=== PATIENT | male | born 1960 | race Caucasian/White ===

== ENCOUNTER 2017-03-12 13:51 | Observation (INO) ==
[2017-03-12] MEDS ORDERED: Lidocaine -MPF 2% 5 ML VIAL INFILT ONE (14:06)
[2017-03-12] MEDS ORDERED: Clindamycin 900 MG/50 ML 900 MG/50 ML IV.SOLN IVPB ONE (14:19)
--- NOTE | 2017-03-12 14:25 | Emergency Department Note ---
Disposition Clinical Impression: Cellulitis of left leg Disposition: Admitted As Inpatient Condition: Good Referrals: NO,PCP [Primary Care Provider] - Forms: ED Satisfaction Letter Time of Disposition: 15:02 Skin/Abscess/FB HPI Chief complaint: ED Skin/Abscess/Foreign Body Stated complaint: possible abscess to left lower leg Source: patient Limitations: no limitations HPI Narrative: Patient presents to emergency department for evaluation of ongoing erythema of the left lateral lower leg. Patient was seen in this facility on March 04, I was treating provider. Patient was placed on Bactrim and Keflex secondary to left lower extremity cellulitis. He states that some of the erythema of the foot has resolved, though he has developed a fluctuant area in the left lower lateral leg. He states it has been draining purulent material. He states he has been taking his antibiotics as prescribed. He denies worsening pain. He denies fever chills. Home Medications Medication Instructions Recorded Confirmed Loratadine [Allergy Relief] 10 mg PO DAILY 03/04/17 03/12/17 metFORMIN [Glucophage] 1,000 mg PO BIDWM 03/04/17 03/12/17 Previous Rx's Medication Instructions Recorded Cephalexin [Keflex] 500 mg PO QID #40 capsule 03/04/17 Sulfamethoxazole/Trimeth DS 2 each PO BID #40 tablet 03/04/17 [Bactrim DS] Allergies Allergy/AdvReac Type Severity Reaction Status Date / Time codeine Allergy Itching Verified 03/12/17 13:54 Constitutional: Denies: fever, chills, weakness Eyes: Denies: vision change Cardiovascular: Denies: chest pain, palpitations, dyspnea on exertion Respiratory: Denies: dyspnea, wheezes Gastrointestinal: Denies: abdominal pain, nausea, vomiting, diarrhea Musculoskeletal: Denies: back pain, neck pain Integumentary: Reports: as per HPI Endocrine: Denies: fatigue Hematological/Lymphatic: Denies: easy bleeding Past Medical History - Past Medical History Medical history: Reports: cirrhosis, COPD, diabetes, hypertension, myocardial infarction Surgical history: Reports: non-contributory (He reports orthopedic repair to left ankle in the distant past.) Psychiatric history: Reports: anxiety, bipolar - Social History Smoking Status: Current every day smoker Alcohol use: Reports: none, occasionally Drug use: Reports: none Physical Exam - General Limitations: no limitations General appearance: alert - Head Head exam: atraumatic, normocephalic - Eye Eye exam: Present: normal appearance - ENT ENT exam: normal exam, normal oropharynx, mucous membranes moist - Neck Neck exam: Present: normal inspection, full ROM, trachea midline. Absent: meningismus - Respiratory Respiratory exam: Present: normal lung sounds bilaterally - Cardiovascular Cardiovascular exam: Present: regular rate, normal rhythm - Abdominal Exam Abdominal exam: Present: soft, Non-Tender. Absent: tenderness - Extremities Exam Extremities exam: Present: normal capillary refill. Absent: calf tenderness ( Patient has a fluctuant abscess in the left lower lateral leg APPROXIMATELY 4 cm in diameter. Patient has surrounding erythema. There is no necrosis crepitus or significant tenderness to indicate necrotizing fasciitis.) - Neurological Exam Neurological exam: Present: alert, oriented X3, CN II-XII intact - Psychiatric Psychiatric exam: Present: normal affect, normal mood - Skin Skin exam: Present: warm, dry (Skin exam is otherwise unremarkable with exception of what was described in the left lower extremity exam) Course Vital Signs Temperature 97.9 F 03/12/17 13:55 Pulse Rate 79 03/12/17 13:55 Respiratory Rate 18 03/12/17 13:55 Blood Pressure 152/91 03/12/17 13:55 O2 Sat by Pulse Oximetry 98 03/12/17 13:55 Temperature 97.9 F 03/12/17 13:56 Pulse Rate 79 03/12/17 13:56 Respiratory Rate 18 03/12/17 13:56 Blood Pressure 152/91 03/12/17 13:56 O2 Sat by Pulse Oximetry 98 03/12/17 13:56 Oxygen Delivery Oxygen Delivery Room Air Procedures - Abscess I/D Consent obtained: verbal consent Site: lower extremity Side (if applicable): left Local Anesthetic: lidocaine 2% Technique: incised with #11 blade Amount of fluid: 0 Irrigation: Yes Packing used?: none (The wound was incised, loculations were broken, culture was obtained though no purulent drainage was expressed.) Skin/Abscess/Foreign Body - MDM Narrative Medical decision making narrative: Patient will need to be admitted to the hospital for IV antibiotics secondary to cellulitis and abscess failed outpatient treatment with underlying diabetes. - Lab Data Lab results reviewed: Yes I reviewed the patient's lab results. Result diagrams: 03/12/17 14:35 03/12/17 14:35 Lab Results 03/12/17 03/12/17 Range/Units 14:35 14:35 WBC 6.2 (4.3-11.1) K/mcL RBC 5.03 (4.19-5.50) M/mcL Hgb 15.0 (12.9-16.9) g/dL Hct 43.0 (37.5-50.1) % MCV 85.5 (83.0-100.0) fL MCH 29.8 (28.0-33.3) pg MCHC 34.9 (31.6-35.5) g/dL RDW 12.3 (11.5-14.5) % Plt Count 112 L (140-400) K/mcL MPV 9.2 L (9.4-12.4) fL Immature Gran % 0.3 (0-4) % Seg Neutrophils % 64.7 % Lymphocytes % 20.7 % Monocytes % 9.9 % Eosinophils % 4.1 % Basophils % 0.3 % Neutrophils # 4.0 (1.6-8.9) K/mcL Lymphocytes # 1.3 (0.6-4.6) K/mcL Monocytes # 0.6 (0.0-1.3) K/mcL Eosinophils # 0.3 (0.0-0.6) K/mcL Basophils # 0.0 (0.0-0.2) K/mcL Sodium 132 L (136-145) mEq/L Potassium 4.1 (3.5-4.5) mEq/L Chloride 98 (98-109) mEq/L Carbon Dioxide 21 (19-29) mEq/L BUN 10 (8-26) mg/dL Creatinine 0.83 (0.72-1.25) mg/dL Est GFR ( Amer) > 60 (> 60) Est GFR (Non-Af Amer) > 60 (> 60) BUN/Creatinine Ratio 12 (6-26) Glucose 228 H (70-99) mg/dL Calculated Osmolality 280 (280-300) Calcium 9.8 (8.6-10.8) mg/dL
[2017-03-12] MEDS ORDERED: Naloxone 0.4 MG/ML INJ IVP PRN (14:30)
[2017-03-12 14:43] LABS: Basophils % 0.3 %; Eosinophils # 0.3 K/mcL (0.0-0.6); Eosinophils % 4.1 %; Immature Granulocytes % 0.3 % (0-4); Lymphocytes # 1.3 K/mcL (0.6-4.6); Lymphocytes % 20.7 %; Mean Corpuscular HGB Conc 34.9 g/dL (31.6-35.5); Mean Corpuscular Hemoglobin 29.8 pg (28.0-33.3); Mean Corpuscular Volume 85.5 fL (83.0-100.0); Mean Platelet Volume 9.2 fL (9.4-12.4); Monocytes # 0.6 K/mcL (0.0-1.3); Monocytes % 9.9 %; Platelet Count 112 K/mcL (140-400); Red Blood Count 5.03 M/mcL (4.19-5.50); Red Cell Distribution Width 12.3 % (11.5-14.5); Segmented Neutrophils % 64.7 %
[2017-03-12 14:59] LABS: BUN/Creatinine Ratio 12 (6-26); Blood Urea Nitrogen 10 mg/dL (8-26); Calcium 9.8 mg/dL (8.6-10.8); Carbon Dioxide 21 mEq/L (19-29); Chloride 98 mEq/L (98-109); Glucose 228 mg/dL (70-99); Osmolality,Calculated 280 (280-300); Potassium 4.1 mEq/L (3.5-4.5); Sodium 132 mEq/L (136-145); eGFR For African Americans > 60 (> 60); eGFR For Non-African Americans > 60 (> 60)
[2017-03-12] MEDS ORDERED: Dextrose Gel 15 GM PO PRN ×2 (20:33)
[2017-03-12] MEDS ORDERED: *HR* Dextrose 50 % in Water (Syg) 50 ML SYRINGE IVP PRN (20:33)
[2017-03-12] MEDS ORDERED: D5% in Water 1,000 ML IVC PRN (20:33)
[2017-03-12] MEDS ORDERED: Vancomycin 1,000 MG in D5% in Water 250 ML IVPB SCH (21:00)
[2017-03-12] MEDS: Doxycycline 100 MG in 0.9 % Sodium Chloride Mini Bag 100 ML IVPB SCH (22:56)
[2017-03-12] MEDS: Insulin LISPRO 300 UNITS/3 ML VIAL SQ SCH (22:58)
[2017-03-13] MEDS ORDERED: Aminoglycoside Consult 1 EACH MC ONE
[2017-03-13] MEDS: *HR* Metformin 500 MG TABLET PO SCH ×2 (08:49→18:03)
[2017-03-13] MEDS: Insulin LISPRO 300 UNITS/3 ML VIAL SQ SCH ×4 (08:50→19:30)
[2017-03-13] MEDS: *HR* HYDROcodone/Acet 5/325 mg TABLET PO PRN ×3 (08:50→23:44)
[2017-03-13] MEDS: Doxycycline 100 MG in 0.9 % Sodium Chloride Mini Bag 100 ML IVPB SCH ×2 (08:51→18:02)
--- NOTE | 2017-03-13 09:18 | Internal Med History&Physical ---
Date of Encounter: 03/13/17 Time of Encounter: 08:50 Assessment and Plan (1) Cellulitis of left leg Current visit: Yes Status: Acute Continue IV vancomycin and doxycycline. We will order CT of left lower leg since he has had previous orthopedic hardware placed. We will reassess in a.m. (2) Thrombocytopenia Current visit: Yes Status: Chronic Chronic. Platelet count was 111 K in May 2014. Suspect secondary to alcoholism (3) DM type 2 (diabetes mellitus, type 2) Current visit: Yes Status: Chronic We will check hemoglobin A1c in a.m. Continue metformin and Accu-Cheks with SSI. Qualifiers: Diabetes mellitus complication status: without complication Diabetes mellitus vermin exterminator insulin use: without vermin exterminator use Qualified Code(s): E11.9 - Type 2 diabetes mellitus without complications Internal Medicine - H&P: HPI Chief complaint: Left leg redness and pain Admitted From: Home Plans for Post Hospital Care: Home History of present illness: Mr. Luo is a 56 year old male who was evaluated emergency room March 04 for left leg redness. He was diagnosed with cellulitis and placed on Keflex and Bactrim. He was instructed to follow with his PCP within a few days. On a routine ER follow-up call he stated he had not been to his PCP. He was instructed to come back to emergency room for recheck of the cellulitis. There appeared to be no improvement. An incision and drainage procedure was done and he was admitted to [facility] floor for ongoing care needs. He denies any trauma or bite etc. at the onset of his symptoms approximately March 02. He has not had previous similar episodes. Past Med Surg Social Fam HX - Past Medical History Medical history: cirrhosis, COPD, diabetes, hypertension, myocardial infarction Psychiatric history: anxiety, bipolar - Past Surgical History Surgical History: non-contributory - Social History Smoking Status: Current every day smoker Packs per day: 1.5 Smokeless Tobacco Status: No Alcohol use: none, occasionally Drug use: none Internal Medicine - H&P: Meds Cephalexin [Keflex] 500 mg PO QID #40 capsule 03/04/17 [Rx] Loratadine [Allergy Relief] 10 mg PO DAILY 03/04/17 [History] Sulfamethoxazole/Trimeth DS [Bactrim DS] 2 each PO BID #40 tablet 03/04/17 [Rx] metFORMIN [Glucophage] 1,000 mg PO BIDWM 03/04/17 [History] Allergies codeine Allergy (Verified 03/12/17 13:54) Itching All Systems PM: A 10-system review of systems was performed and is negative for pertinent findings except as documented above in the HPI. Review of systems: Gen.: He states his weight has been stable past few months Cardiovascular: He has a history of hypertension. He states he had [place] approximately 2010 but denies heart cath or stress test. States he gets occasional chest tightness on exertion. He denies heart failure DVT or pulmonary embolus Respiratory: He smokes since age 14 up to 2 packs per day. He has a diagnosis of COPD but does not wear home oxygen. He states had a lung biopsy several years ago without malignancy found. GI: He has a diagnosis of cirrhosis secondary to alcohol use. He still drinks occasionally. Denies disorders of his gallbladder or exocrine pancreas : He had kidney stones approximately 2006. He denies other kidney bladder or prostate disorders Neurologic: He has had "mini strokes" without permanent neurologic deficit. He denies large distribution strokes or seizures Endocrine: He was diagnosed with DM 2 over 10 years ago. He does not check his sugars regularly. He denies thyroid disease or hyperlipidemia Hematology/oncology: Denies blood disorders cancers or anemia Psychiatric: He has depression but denies anxiety or other mental health issues Musculoskeletal: He has DJD but no known gout or other bone joint or muscle disorders. He had left leg fracture several years ago and states he has hardware in his left lower leg - Constitutional Vitals: Temp Pulse Resp BP Pulse Ox 97.6 F 93 18 130/88 97 03/13/17 06:39 03/13/17 06:39 03/13/17 06:39 03/13/17 06:39 03/13/17 06:39 Exam: Gen.: He is a well-developed well-nourished male who appears in minimal distress at present time HEENT: Head is atraumatic and normocephalic. Eyes: EOMI. There is no scleral icterus. Mouth: Mucosa is moist. Neck: Supple and nontender. There is no thyromegaly or adenopathy noted. Heart: Regular without murmurs gallops or ectopics. Lungs: No wheezes or crackles are heard. Abdomen: Soft and nontender. No masses or guarding are noted. Extremities: There is no cyanosis edema or clubbing noted. Dorsalis pedis and posttibial pulses are 1-2 over 2 bilaterally. Left lower leg shows increased erythema and is warmer to touch than the right leg. There is small incision and drainage site in a 3 cm circular area on his lateral lower left leg. It is not fluctuant and there is no drainage on pressure. He has flexion contraction of the left fourth finger at the PIP joint. Neurologic: Mental status: He is talkative and a good historian. Cranial nerves : Smile is symmetric. Forehead wrinkles bilaterally. Tongue protrudes midline. EOMI. Motor: There is no pronator drift. Cerebellar: Finger to nose is intact bilaterally Skin: Warm and dry. He has a few tattoos. Internal Med - H&P Results - Labs CBC & Chem 7: 03/12/17 14:35 03/12/17 14:35
[2017-03-13] MEDS: Vancomycin 1,000 MG in D5% in Water 250 ML IVPB SCH ×2 (12:24→23:54)
[2017-03-14 05:20] LABS: Basophils % 0.7 %; Eosinophils # 0.2 K/mcL (0.0-0.6); Eosinophils % 5.6 %; Hematocrit 41.1 % (37.5-50.1); Hemoglobin 14.5 g/dL (12.9-16.9); Immature Granulocytes % 0.4 % (0-4); Lymphocytes # 0.8 K/mcL (0.6-4.6); Lymphocytes % 27.8 %; Mean Corpuscular HGB Conc 35.3 g/dL (31.6-35.5); Mean Corpuscular Hemoglobin 30.4 pg (28.0-33.3); Mean Corpuscular Volume 86.2 fL (83.0-100.0); Mean Platelet Volume 9.3 fL (9.4-12.4); Monocytes # 0.3 K/mcL (0.0-1.3); Monocytes % 10.6 %; Red Blood Count 4.77 M/mcL (4.19-5.50); Segmented Neutrophils % 54.9 %
[2017-03-14 05:21] LABS: Neutrophils # 1.5 K/mcL (1.6-8.9); Platelet Count 87 K/mcL (140-400)
[2017-03-14 05:27] LABS: INR 1.2; Prothrombin Time 13.5 Seconds (9.4-12.1)
[2017-03-14] MEDS: *HR* HYDROcodone/Acet 5/325 mg TABLET PO PRN (05:40)
[2017-03-14] MEDS: Doxycycline 100 MG in 0.9 % Sodium Chloride Mini Bag 100 ML IVPB SCH ×2 (05:40→09:29)
[2017-03-14 05:42] LABS: Alanine Aminotransferase 31 Units/L (0-55); Albumin 3.4 g/dL (3.5-5.0); Albumin/Globulin Ratio 0.9 (1.1-2.2); Alkaline Phosphatase 90 Units/L (38-126); Aspartate Amino Transferase 22 Units/L (5-34); BUN/Creatinine Ratio 9 (6-26); Bilirubin,Total 0.8 mg/dL (0.2-1.2); Blood Urea Nitrogen 7 mg/dL (8-26); Calcium 9.6 mg/dL (8.6-10.8); Carbon Dioxide 23 mEq/L (19-29); Chloride 102 mEq/L (98-109); Globulin 3.6 g/dL (2.4-3.5); Glucose 185 mg/dL (70-99); Osmolality,Calculated 285 (280-300); Potassium 4.6 mEq/L (3.5-4.5); Sodium 136 mEq/L (136-145); eGFR For African Americans > 60 (> 60); eGFR For Non-African Americans > 60 (> 60)
[2017-03-14] MEDS: Insulin LISPRO 300 UNITS/3 ML VIAL SQ SCH (07:29)
[2017-03-14 07:41] VITALS: BP 157/93
[2017-03-14] MEDS: *HR* Metformin 500 MG TABLET PO SCH (09:30)
--- NOTE | 2017-03-14 10:41 | Discharge Summary ---
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 Qualified Code(s): E11.9 - Type 2 diabetes mellitus without complications - Discharge Medications Prescriptions: Doxycycline 100 mg PO BID #10 capsule Lactobacillus [Culturelle] 1 each PO BID #10 cap.sprink Home Medications: Sulfamethoxazole/Trimeth DS [Bactrim Ds] 2 each PO BID #40 tablet 03/04/17 [Rx] metFORMIN [Glucophage] 1,000 mg PO BIDWM 03/04/17 [History] Doxycycline 100 mg PO BID #10 capsule 03/14/17 [Rx] Lactobacillus [Culturelle] 1 each PO BID #10 cap.sprink 03/14/17 [Rx] Loratadine [Allergy Relief] 10 mg PO DAILY PRN #0 03/14/17 [Rx] Allergies/Adverse Reactions: Allergies codeine Allergy (Verified 03/12/17 13:54) Itching Procedures/tests Complete & Pending: Procedures Performed prior 72 hours Category Date Time Status CT lower leg LT wo con [CT] Routine Cat Scan 03/13/17 09:32 Completed Date of admission: 03/12/17 15:04 Primary care physician: Virginie Frey CNP - Patient Status Disposition: Home, Self-Care Condition: Good Functional capacity at discharge: independent ambulation Overall status at discharge: patient is progressing back to baseline - Discharge Instructions Follow Up With: Virginie Frey GED TUTOR [Advanced Practice Nurse] - 1 week - Diet and Activity Activity: resume usual activities as tolerated Diet: advance to your usual diet Hospital course: Mr. Luo is a 56 year old male who was evaluated in emergency room March 04 for left leg redness. He was diagnosed with cellulitis and placed on Keflex and Bactrim. He was instructed to follow with his PCP within a few days. On a routine ER follow-up call he stated he had not been to his PCP. He was instructed to come back to emergency room for recheck of the cellulitis. There appeared to be no improvement. An incision and drainage procedure was done and he was admitted to [facility] for ongoing care needs. Initial orders were written by the emergency room physician. I saw him on March 13 and performed the history and physical. I/D procedure was done in the emergency room. The culture report showed MRSA. He was started empirically on IV vancomycin and doxycycline by me on admission. He will continue Septra DS from a previous prescription at discharge and I added doxycycline 100 mg twice a day for 5 additional days. Hemoglobin A1c was ordered with results pending at time of discharge. I encouraged him to discontinue smoking and alcohol use. He will follow with his PCP Virginie Frey CNP within 1 week. - Time Spent with Patient Total time spent providing and/or coordinating discharge services: - Constitutional Vitals: Temp Pulse Resp BP Pulse Ox 97.5 F L 73 15 157/93 98 03/14/17 07:00 03/14/17 07:00 03/14/17 09:02 03/14/17 07:00 03/14/17 09:02
[2017-03-14 17:45] LABS: Hemoglobin A1C 9.2 %
== END 2017-03-14 11:05 | disposition home or self-care (01) ==
LOC: INPPIK 13:51 → EMEROOPIK 13:51 → INPPIK 15:24
PROVIDERS: ADMIT Internal Medicine; ATTEND Internal Medicine

== ENCOUNTER 2018-10-28 15:58 | Inpatient (IN) ==
[2018-10-28] MEDS ORDERED: methylPREDNISolone 125 MG/2 ML VIAL IVP ONE ×2 (16:47→22:01)
[2018-10-28] MEDS ORDERED: Ipratropium/Albuterol Neb 3 ML IH ONE (16:47)
[2018-10-28] MEDS ORDERED: 0.9 % Sodium Chloride 1,000 ML IVC ONE (16:47)
--- NOTE | 2018-10-28 16:51 | Emergency Department Note ---
Disposition Clinical Impression: Acute exacerbation of chronic obstructive airways disease, Bronchitis, Acute hyponatremia Disposition: Admitted As Inpatient Condition: Fair Referrals: NONE,PCP [Primary Care Provider] - Forms: ED Satisfaction Letter Time of Disposition: 18:49 SOB HPI - General Chief Complaint: ED Shortness of Breath/Dyspnea Stated Complaint: productive cough and sob Time Seen by Provider: 10/28/18 16:16 Source: patient Mode of arrival: private vehicle Limitations: no limitations Nursing Notes Reviewed: Yes Vital Signs Reviewed: Yes - History of Present Illness Pt Subjective Complaint: shortness of breath Onset (ago): week(s) (One-week) Context: recent illness (Started with upper respiratory infection that moved into his chest.) Severity: severe Consistency/Duration: constant, gradually worsening Improves with: bronchodilators Worsens with: exertion, movement, coughing Known history of: COPD Associated symptoms: Reports: chest pain (History feels sore and burning on both sides, particularly with breathing), pain with inspiration, cough, wheezing, sputum production Treatment prior to arrival: bronchodilator Cough present: (Using his home aerosols with mild relief) Cough Description: Productive Cough Frequency: Persistent - Related Data Home Medications Medication Instructions Recorded Confirmed metFORMIN [Glucophage] 1,000 mg PO BIDWM 03/04/17 10/28/18 Albuterol Neb [AccuNeb] 0.63 mg IH ONCE 10/28/18 10/28/18 Previous Rx's Medication Instructions Recorded Loratadine [Allergy Relief] 10 mg PO DAILY PRN #0 03/14/17 Allergies Allergy/AdvReac Type Severity Reaction Status Date / Time codeine Allergy Itching Verified 03/12/17 13:54 All systems ED: reviewed and negative except as stated. Constitutional: Denies: fever, chills ENT ED: Reports: congestion. Denies: ear pain, throat pain Cardiovascular: Reports: chest pain, dyspnea on exertion. Denies: palpitations Respiratory: Reports: cough, dyspnea, wheezes Gastrointestinal: Denies: abdominal pain, nausea, vomiting, diarrhea Integumentary: Denies: rash Neurological: Denies: headache Past Medical History - Past Medical History Attestation: Yes The following information was validated with the patient. Source: patient, old records reviewed, nursing notes reviewed Medical history: Reports: cirrhosis, COPD, diabetes, hypertension, myocardial infarction, TIA Surgical history: Reports: non-contributory Psychiatric history: Reports: anxiety, bipolar - Social History Smoking Status: Current every day smoker Smokeless Tobacco Status: No Alcohol use: Reports: occasionally Drug use: Reports: none Physical Exam - General Limitations: no limitations General appearance: alert, in no apparent distress - Head Head exam: atraumatic, normocephalic, normal inspection - Eye Eye exam: Present: normal appearance, PERRL, EOMI. Absent: scleral icterus, conjunctival injection - ENT ENT exam: normal exam, normal oropharynx, mucous membranes moist, TM's normal bilaterally, normal external ear exam - Neck Neck exam: Present: normal inspection, full ROM, trachea midline. Absent: meningismus - Chest Chest inspection: Present: normal inspection, symmetric chest wall rise, tenderness (Mild tenderness bilaterally) - Respiratory Respiratory exam: Present: wheezes (Diffuse bilateral wheezing). Absent: respiratory distress - Cardiovascular Cardiovascular exam: Present: regular rate, normal rhythm, normal heart sounds - Abdominal Exam Abdominal exam: Present: soft, Non-Tender, normal bowel sounds - Extremities Exam Extremities exam: Present: normal inspection. Absent: pedal edema - Neurological Exam Neurological exam: Present: alert, oriented X3 - Psychiatric Psychiatric exam: Present: normal affect, normal mood - Skin Skin exam: Present: warm, dry. Absent: rash Course Course Narrative: Patient presents with shortness of breath and cough. Started with upper respiratory infection week ago and moved into his chest. He was comfortable much a yellow mucus but now its clear mucus. However he is developed wheezing over the days and more shortness of breath. On physical examination there is diffuse wheezing. He does not appear in respiratory distress while sitting. He was able to ambulate fairly well. Heart rate is normal and pulse ox 95% on room air at rest. I will initiate shortness of breath workup and start doing nebs and steroids on the patient. Disposition will be based on diagnostic results and reevaluation. - Reevaluation(s) Reevaluation #1: Patient's chest x-ray was fine. All of his labs are fine except for a very low sodium of 116. This is unusual and I do not have a an explanation for it at this point. He needs to be admitted for both the COPD exacerbation which I feel is secondary to bronchitis and he needs to be admitted for the hyponatremia. We have given him a liter of saline. He appears euvolemic to me but if he is been coughing a lot due to illness there is a good chance there is some mild dehydration. We will continue saline in the hospital. I will start him on antibiotics and he will get breathing treatments and steroids in the hospital. I have already spoken with the hospitalist. Time: 18:48 - Consultations Consultation #1: Dr. Herrera, hospitalist - I discussed the case with the hospitalist. We talked about the admission for COPD exacerbation and shortness of breath. We also dis cussed the need for remission secondary to hyponatremia. He has accepted the patient for admission to the hospital. Time: 18:46 Vital Signs Temperature 98.1 F 10/28/18 16:00 Pulse Rate 88 10/28/18 16:00 Respiratory Rate 18 10/28/18 16:00 Blood Pressure 174/101 10/28/18 16:00 O2 Sat by Pulse Oximetry 96 10/28/18 16:00 Temperature 98.1 F 10/28/18 16:00 Pulse Rate 95 10/28/18 18:20 Respiratory Rate 18 10/28/18 18:20 Blood Pressure 146/83 10/28/18 18:20 O2 Sat by Pulse Oximetry 96 10/28/18 18:20 Oxygen Delivery Oxygen Delivery Room Air Shortness of Breath/Dyspnea - Medical Records Medical records reviewed: Yes I reviewed the patient's medical records. - Lab Data Lab results reviewed: Yes I reviewed the patient's lab results. Result diagrams: 10/28/18 17:05 10/28/18 17:05 Lab Results 10/28/18 10/28/18 10/28/18 Range/Units 17:05 17:05 17:05 WBC 5.0 (4.3-11.1) K/mcL RBC 4.63 (4.19-5.50) M/mcL Hgb 14.1 (12.9-16.9) g/dL Hct 38.8 (37.5-50.1) % MCV 83.8 (83.0-100.0) fL MCH 30.5 (28.0-33.3) pg MCHC 36.3 H (31.6-35.5) g/dL RDW 13.3 (11.5-14.5) % Plt Count 68 L (140-400) K/mcL MPV 9.5 (9.4-12.4) fL Immature Gran % 0.6 (0-4) % Seg Neutrophils % 67.0 % Lymphocytes % 11.8 % Monocytes % 19.0 % Eosinophils % 1.2 % Basophils % 0.4 % Neutrophils # 3.4 (1.6-8.9) K/mcL Lymphocytes # 0.6 (0.6-4.6) K/mcL Monocytes # 1.0 (0.0-1.3) K/mcL Eosinophils # 0.1 (0.0-0.6) K/mcL Basophils # 0.0 (0.0-0.2) K/mcL Platelet Estimate Decreased L (Normal) Sodium 116 L* (136-145) mEq/L Potassium 3.7 (3.5-5.1) mEq/L Chloride 82 L (98-107) mEq/L Carbon Dioxide 30 H (23-29) mEq/L BUN 7 (6-20) mg/dL Creatinine 0.51 L (0.70-1.30) mg/dL Est GFR ( Amer) > 60 (> 60) Est GFR (Non-Af Amer) > 60 (> 60) BUN/Creatinine Ratio 14 (6-26) Glucose 202 H (70-105) mg/dL Calculated Osmolality 246 L (280-300) Calcium 9.1 (8.6-10.3) mg/dL Troponin I < 0.03 (< 0.04) ng/mL - Radiology Data Radiology results reviewed: Yes I reviewed the patient's radiology results. - EKG Data EKG attestation: Yes I reviewed and interpreted this EKG. EKG results narrative: Twelve-lead EKG performed at 1650 4 PM. Ordered, reviewed and is a by ED physician shows sinus rhythm at a rate of 82. Normal axis. Good R progression across corneum. No acute ischemic changes. Intervals are within normal limits.
[2018-10-28 17:26] LABS: Basophils % 0.4 %; Eosinophils # 0.1 K/mcL (0.0-0.6); Eosinophils % 1.2 %; Hematocrit 38.8 % (37.5-50.1); Hemoglobin 14.1 g/dL (12.9-16.9); Immature Granulocytes % 0.6 % (0-4); Lymphocytes # 0.6 K/mcL (0.6-4.6); Lymphocytes % 11.8 %; Mean Corpuscular HGB Conc 36.3 g/dL (31.6-35.5); Mean Corpuscular Hemoglobin 30.5 pg (28.0-33.3); Mean Corpuscular Volume 83.8 fL (83.0-100.0); Mean Platelet Volume 9.5 fL (9.4-12.4); Neutrophils # 3.4 K/mcL (1.6-8.9); Red Blood Count 4.63 M/mcL (4.19-5.50); Red Cell Distribution Width 13.3 % (11.5-14.5)
[2018-10-28 17:40] LABS: Platelet Count 68 K/mcL (140-400)
[2018-10-28 17:44] LABS: BUN/Creatinine Ratio 14 (6-26); Blood Urea Nitrogen 7 mg/dL (6-20); Calcium 9.1 mg/dL (8.6-10.3); Carbon Dioxide 30 mEq/L (23-29); Chloride 82 mEq/L (98-107); Glucose 202 mg/dL (70-105); Osmolality,Calculated 246 (280-300); Potassium 3.7 mEq/L (3.5-5.1); Sodium 116 mEq/L (136-145); eGFR For Non-African Americans > 60 (> 60)
[2018-10-28 17:51] LABS: Platelet Estimate Decreased (Normal)
[2018-10-28] MEDS ORDERED: Azithromycin 500 MG in D5% in Water 250 ML IVPB ONE (18:30)
[2018-10-28] MEDS ORDERED: Naloxone 0.4 MG/ML INJ IVP PRN (22:01)
[2018-10-28] MEDS ORDERED: Loratadine 10 MG TABLET PO PRN (22:01)
[2018-10-28] MEDS ORDERED: Ibuprofen 400 MG TABLET PO PRN (22:01)
[2018-10-28] MEDS: Ipratropium/Albuterol Neb 3 ML IH SCH (22:35)
[2018-10-28] MEDS: 0.9 % Sodium Chloride 1,000 ML IVC SCH (23:04)
[2018-10-29] MEDS: Ipratropium/Albuterol Neb 3 ML IH SCH ×3 (00:44→08:52)
[2018-10-29] MEDS ORDERED: methylPREDNISolone 125 MG/2 ML VIAL IVP ONE (01:00)
[2018-10-29] MEDS: 0.9 % Sodium Chloride 1,000 ML IVC SCH ×2 (06:11→16:14)
[2018-10-29 06:16] LABS: BUN/Creatinine Ratio 12 (6-26); Blood Urea Nitrogen 6 mg/dL (6-20); Calcium 8.6 mg/dL (8.6-10.3); Carbon Dioxide 27 mEq/L (23-29); Chloride 87 mEq/L (98-107); Glucose 377 mg/dL (70-105); Osmolality,Calculated 263 (280-300); Potassium 4.2 mEq/L (3.5-5.1); Sodium 120 mEq/L (136-145); eGFR For Non-African Americans > 60 (> 60)
[2018-10-29] MEDS: *HR* Metformin 500 MG TABLET PO SCH ×2 (08:13→16:13)
[2018-10-29] MEDS: Nicotine 21 MG PATCH.TD24 TD SCH (13:52)
--- NOTE | 2018-10-29 15:28 | Internal Med History&Physical ---
Date of Encounter: 10/29/18 Time of Encounter: 15:00 Assessment and Plan (1) Acute exacerbation of chronic obstructive airways disease Current visit: Yes Status: Acute Chest x-ray showed no obvious infiltrate. Chest CT will be ordered to further evaluate. (2) Acute hyponatremia Current visit: Yes Status: Acute Suspect SIADH. Order chest CT, continue IV normal saline, and recheck labs in a.m. (3) Thrombocytopenia Current visit: No Status: Chronic Probably secondary to cirrhosis. Continue to monitor. (4) DM type 2 (diabetes mellitus, type 2) Current visit: No Status: Chronic Hemoglobin A1c was 9.2% on 03/14/2017. Recheck in a.m. Qualifiers: Diabetes mellitus emt intermediate insulin use: without emt intermediate use Diabetes mellitus complication status: without complication Qualified Code(s): E11.9 - Type 2 diabetes mellitus without complications Internal Medicine - H&P: HPI Chief complaint: Dyspnea Admitted From: Emergency Dept Plans for Post Hospital Care: Home History of present illness: Mr. Luo is a 58 year old male who came to emergency room stating he had 3-4 day history of discomfort in his ribs, mid low back, and epigastric area. He reports a cough productive of yellow sputum. He had 3 episodes of diarrhea but denies vomiting. He was evaluated in emergency room and was felt to have exacerbation of COPD with acute bronchitis and significant hyponatremia with sodium 116. He was admitted to [facility] floor for ongoing care needs. Respiratory history is significant for having smoked since age 14 up to 2 packs per day. He has a diagnosis of COPD but does not wear home oxygen. He states had a lung biopsy several years ago without malignancy found. Past Med Surg Social Fam HX - Past Medical History Medical history: cirrhosis, COPD, diabetes, hypertension, myocardial infarction, TIA Psychiatric history: anxiety, bipolar - Past Surgical History Surgical History: non-contributory Additional surgical history: left leg has a bar and 6 screws - Social History Smoking Status: Current every day smoker Smokeless Tobacco Status: No Alcohol use: occasionally Drug use: none Internal Medicine - H&P: Meds metFORMIN [Glucophage] 1,000 mg PO BIDWM 03/04/17 [History] Loratadine [Allergy Relief] 10 mg PO DAILY PRN #0 03/14/17 [Rx] Albuterol Neb [AccuNeb] 2.5 mg IH QID PRN 10/28/18 [History] Alogliptin Benzoate [Alogliptin] 25 mg PO DAILY 10/29/18 [History] Gabapentin [Neurontin] 800 mg PO TID 10/29/18 [History] Insulin Glargine,Hum.rec.anlog [Basaglar Kwikpen U-100] 20 units SQ DAILY 10/29/18 [History] Meloxicam 15 mg PO DAILY 10/29/18 [History] Metoprolol [Lopressor] 100 mg PO BID 10/29/18 [History] Montelukast [Singulair] 10 mg PO DAILY 10/29/18 [History] Ventolin Hfa 90 mcg IH QID PRN 10/29/18 [History] Allergy/AdvReac Type Severity Reaction Status Date / Time codeine Allergy Itching Verified 03/12/17 13:54 All Systems PM: A 10-system review of systems was performed and is negative for pertinent findings except as documented above in the HPI. Review of systems: Gen.: His weight has been stable at approximate 2 kg estimate 2017 [facility] hospitalization. Cardiovascular: He has a history of hypertension. He states he had [place] approximately 2010 but denies heart cath or stress test. He states he gets occasional chest tightness on exertion. He denies heart failure DVT or pulmonary embolus Respiratory: As per history of present illness GI: He has a diagnosis of cirrhosis secondary to alcohol use. He still drinks occasionally. Denies disorders of his gallbladder or exocrine pancreas : He had kidney stones approximately 2006. He denies other kidney bladder or prostate disorders Neurologic: He has had "mini strokes" without permanent neurologic deficit. He denies large distribution strokes or seizures Endocrine: He was diagnosed with DM 2 approximately 2006. He does not check his sugars regularly. He denies thyroid disease or hyperlipidemia Hematology/oncology: Denies blood disorders cancers or anemia Psychiatric: He has depression and anxiety but denies other mental health issues Musculoskeletal: He has DJD but no known gout or other bone joint or muscle disorders. He had left leg fracture several years ago and states he has hardware in his left lower leg - Constitutional Vitals: Temp Pulse Resp BP Pulse Ox 98.1 F 104 18 138/68 92 10/29/18 11:00 10/29/18 11:00 10/29/18 11:00 10/29/18 11:00 10/29/18 11:00 Exam: Gen.: He is a well-developed well-nourished male sitting on the side of bed who appears in no acute distress HEENT: Head is atraumatic and normocephalic. Eyes: EOMI. There is no scleral icterus. Mouth: Mucosa is moist Neck: Supple and nontender. There is no thyromegaly or adenopathy noted. Heart: Regular without murmurs gallops or ectopics Lungs: No wheezes or crackles are heard. Abdomen: Soft and nontender. No masses or guarding are noted. Extremities: There is no cyanosis edema or clubbing noted. Dorsalis pedis and posttibial pulses are 1-2 over 2 bilaterally. Neurologic: Mental status: He is talkative and a good historian. Cranial nerves: Smile is symmetric. Forehead wrinkles bilaterally. Tongue protrudes midline. EOMI. Motor: There is no pronator drift. Cerebellar: Finger to nose is intact bilaterally. Skin: Warm and dry Internal Med - H&P Results - Labs CBC & Chem 7: 10/28/18 17:05 10/29/18 04:40 Labs: Short CBC 10/28/18 Range/Units 17:05 WBC 5.0 (4.3-11.1) K/mcL Hgb 14.1 (12.9-16.9) g/dL Hct 38.8 (37.5-50.1) % Plt Count 68 L (140-400) K/mcL Neutrophils # 3.4 (1.6-8.9) K/mcL BMP 10/28/18 10/29/18 17:05 04:40 Sodium 116 L* 120 L* Potassium 3.7 4.2 Chloride 82 L 87 L Carbon Dioxide 30 H 27 BUN 7 6 Creatinine 0.51 L 0.52 L Glucose 202 H 377 H Calcium 9.1 8.6 Cardiac Enzymes 10/28/18 Range/Units 17:05 Troponin I < 0.03 (< 0.04) ng/mL - Impressions ITS Impressions Chest X-Ray 10/28/18 16:26 IMPRESSION: No acute abnormalities seen in the chest D/ / Emerson Simon MD / Emerson Simon MD Interpreting Provider: Emerson Simon MD
[2018-10-29] MEDS ORDERED: ALPRAZolam 0.5 MG TABLET PO PRN (15:38)
[2018-10-29] MEDS: Mag Hydrox/Al Hydrox/Simeth 30 ML UDC PO PRN ×2 (16:12→21:45)
[2018-10-29] MEDS: cefTRIAXone 1,000 MG in Water for inj. (sterile) 20 ML 10 ML IVPB SCH (17:48)
[2018-10-29] MEDS: Ipratropium/Albuterol Neb 3 ML IH PRN (18:06)
[2018-10-29 20:19] LABS: Bilirubin,Urine Negative (Negative); Blood,Urine Negative (Negative); Clarity,Urine Clear (Clear); Color,Urine Yellow (Yellow); Glucose,Urine (UA) 250 mg/dL (Normal); Ketones,Urine Negative (Negative); Leukocyte Esterase,Urine Negative (Negative); Nitrite,Urine Negative (Negative); PH,Urine 6.5 pH Units (5.0-8.0); Protein,Urine Negative (Neg-Trace)
[2018-10-29] MEDS: Azithromycin 500 MG in D5% in Water 250 ML IVPB SCH (21:46)
[2018-10-29] MEDS: Insulin DETEMIR 100 UNIT/ML X5UNITS SQ SCH (21:47)
[2018-10-30] MEDS: 0.9 % Sodium Chloride 1,000 ML IVC SCH ×3 (02:11→19:27)
[2018-10-30] MEDS: Mag Hydrox/Al Hydrox/Simeth 30 ML UDC PO PRN ×3 (04:44→20:46)
[2018-10-30 06:10] LABS: Basophils % 0.2 %; Eosinophils # 0.1 K/mcL (0.0-0.6); Eosinophils % 1.2 %; Hematocrit 36.2 % (37.5-50.1); Immature Granulocytes % 0.9 % (0-4); Lymphocytes # 0.4 K/mcL (0.6-4.6); Lymphocytes % 9.1 %; Mean Corpuscular HGB Conc 35.9 g/dL (31.6-35.5); Mean Corpuscular Hemoglobin 30.4 pg (28.0-33.3); Mean Corpuscular Volume 84.6 fL (83.0-100.0); Mean Platelet Volume 9.2 fL (9.4-12.4); Monocytes # 0.7 K/mcL (0.0-1.3); Monocytes % 15.2 %; Neutrophils # 3.1 K/mcL (1.6-8.9); Red Blood Count 4.28 M/mcL (4.19-5.50); Red Cell Distribution Width 13.5 % (11.5-14.5); Segmented Neutrophils % 73.4 %
[2018-10-30 06:13] LABS: Platelet Count 59 K/mcL (140-400)
[2018-10-30 06:33] LABS: BUN/Creatinine Ratio 13 (6-26); Blood Urea Nitrogen 5 mg/dL (6-20); Calcium 8.4 mg/dL (8.6-10.3); Carbon Dioxide 28 mEq/L (23-29); Chloride 92 mEq/L (98-107); Glucose 148 mg/dL (70-105); Osmolality,Calculated 262 (280-300); Potassium 3.3 mEq/L (3.5-5.1); Sodium 126 mEq/L (136-145); eGFR For Non-African Americans > 60 (> 60)
[2018-10-30] MEDS: *HR* Metformin 500 MG TABLET PO SCH ×2 (07:45→17:35)
[2018-10-30] MEDS: Insulin DETEMIR 100 UNIT/ML X5UNITS SQ SCH ×2 (08:56→22:02)
[2018-10-30 10:01] LABS: Estimated Average Glucose 212 mg/dl
--- NOTE | 2018-10-30 10:06 | Internal Med Progress Note ---
Date of Encounter: 10/30/18 Time of Encounter: 09:55 - Assessment and plan (1) Acute exacerbation of chronic obstructive airways disease Current Visit: Yes Status: Acute Assessment and plan: October 30. Chest CT showed groundglass area in right upper lobe but no obvious infiltrate otherwise. Recommended follow-up scan in 3-6 months. (2) Acute hyponatremia Current Visit: Yes Status: Acute Assessment and plan: October 30. Sodium improved to 126. Continue present intervention and recheck labs in a.m. (3) Thrombocytopenia Current Visit: No Status: Chronic Assessment and plan: October 30. Probably secondary to cirrhosis. Continue to monitor. (4) DM type 2 (diabetes mellitus, type 2) Current Visit: No Status: Chronic Assessment and plan: October 30. Hemoglobin A1c pending. Blood sugars above desirable range. Increase Levemir. Qualifiers: Diabetes mellitus terminal system operator insulin use: without terminal system operator use Diabetes mellitus complication status: without complication Qualified Code(s): E11.9 - Type 2 diabetes mellitus without complications - Subjective Interval history: October 30. He has no new complaints. - Constitutional Vitals: Temp Pulse Resp BP Pulse Ox 97.5 F L 99 18 151/82 92 10/30/18 07:04 10/30/18 07:04 10/30/18 07:04 10/30/18 07:04 10/30/18 07:04 Exam: He is lying in bed and appears in no acute distress. He states his breathing has improved. His affect is bright and cheerful. I reviewed his medications and lab results. Internal Medicine: Result - Labs CBC & Chem 7: 10/30/18 05:38 10/30/18 05:38 Labs: Short CBC 10/30/18 Range/Units 05:38 WBC 4.3 (4.3-11.1) K/mcL Hgb 13.0 (12.9-16.9) g/dL Hct 36.2 L (37.5-50.1) % Plt Count 59 L (140-400) K/mcL Neutrophils # 3.1 (1.6-8.9) K/mcL BMP 10/30/18 05:38 Sodium 126 L Potassium 3.3 L Chloride 92 L Carbon Dioxide 28 BUN 5 L Creatinine 0.40 L Glucose 148 H Calcium 8.4 L Urine 10/29/18 Range/Units 20:12 Urine Color Yellow (Yellow) Urine Clarity Clear (Clear) Urine pH 6.5 (5.0-8.0) pH Units Ur Specific [place] 1.020 (1.010-1.025) Urine Protein Negative (Neg-Trace) mg/dL Urine Glucose (UA) 250 H (Normal) mg/dL - Impressions Impressions Chest CT 10/29/18 15:37 IMPRESSION: Nonspecific ground-glass opacity within the medial aspect of the right upper lobe may be infectious or inflammatory. Recommend follow-up in 3-6 months. Bilateral upper lobe scarring. Mild diffuse esophageal wall thickening with suggestion of mild varices. Small-moderate amount of free fluid within the upper abdomen. Hepatic cirrhosis. D/ / 10/29/2018 17:29:50 Avery Gomez MD / [email or web address] Interpreting Provider: Avery Gomez MD Consult Discharge Plan - Plan Referrals: NONE,PCP [Primary Care Provider] - 1 week
[2018-10-30] MEDS: Nicotine 21 MG PATCH.TD24 TD SCH (10:35)
[2018-10-30] MEDS: Ipratropium/Albuterol Neb 3 ML IH PRN (14:00)
[2018-10-30] MEDS: traMADol 50 MG TABLET PO PRN ×2 (15:38→20:45)
[2018-10-30] MEDS: cefTRIAXone 1,000 MG in Water for inj. (sterile) 20 ML 10 ML IVPB SCH (17:36)
[2018-10-30] MEDS: Azithromycin 500 MG in D5% in Water 250 ML IVPB SCH (20:46)
[2018-10-31 07:37] VITALS: BP 152/87
[2018-10-31 08:43] LABS: Hematocrit 41.3 % (37.5-50.1); Hemoglobin 14.3 g/dL (12.9-16.9); Mean Corpuscular HGB Conc 34.6 g/dL (31.6-35.5); Mean Corpuscular Hemoglobin 30.3 pg (28.0-33.3); Mean Corpuscular Volume 87.5 fL (83.0-100.0); Mean Platelet Volume 8.2 fL (9.4-12.4); Red Blood Count 4.72 M/mcL (4.19-5.50); Red Cell Distribution Width 13.9 % (11.5-14.5)
[2018-10-31 08:46] LABS: Platelet Count 81 K/mcL (140-400)
[2018-10-31 10:19] LABS: Lymphocytes # 0.5 K/mcL (0.6-4.6); Monocytes # 0.5 K/mcL (0.0-1.3); Neutrophils # 3.8 K/mcL (1.6-8.9)
[2018-10-31 10:20] LABS: Platelet Estimate Decreased (Normal)
[2018-10-31 10:32] LABS: eGFR For Non-African Americans > 60 (> 60)
[2018-10-31] MEDS: Nicotine 21 MG PATCH.TD24 TD SCH (10:38)
[2018-10-31] MEDS: Insulin DETEMIR 100 UNIT/ML X5UNITS SQ SCH (10:38)
[2018-10-31] MEDS: *HR* Metformin 500 MG TABLET PO SCH (10:38)
[2018-10-31 11:02] LABS: Alanine Aminotransferase 100 Units/L (7-52); Albumin 3.5 g/dL (3.5-5.7); Alkaline Phosphatase 105 Units/L (34-104); Aspartate Amino Transferase 140 Units/L (13-39); BUN/Creatinine Ratio 10 (6-26); Bilirubin,Total 1.5 mg/dL (0.3-1.0); Blood Urea Nitrogen 5 mg/dL (6-20); Calcium 9.2 mg/dL (8.6-10.3); Carbon Dioxide 33 mEq/L (23-29); Chloride 91 mEq/L (98-107); Globulin 3.6 g/dL (2.4-3.5); Glucose 117 mg/dL (70-105); Magnesium 2.2 mg/dL (1.6-2.6); Osmolality,Calculated 264 (280-300); Potassium 4.9 mEq/L (3.5-5.1); Sodium 128 mEq/L (136-145); Total Protein 7.1 g/dL (6.4-8.9)
--- NOTE | 2018-10-31 12:07 | Discharge Summary ---
Orders not resulted at time of discharge: Pending orders 10/28/18 17:15 Culture,Blood [BC] Stat 10/31/18 08:25 Folate AM 0400 Vitamin B12 AM 0400 Date of Encounter: 10/31/18 Time of Encounter: 11:55 - Discharge Diagnosis (1) Acute exacerbation of chronic obstructive airways disease Priority: Primary Status: Acute (2) Acute hyponatremia Priority: Secondary Status: Acute (3) Thrombocytopenia Priority: Secondary Status: Chronic (4) DM type 2 (diabetes mellitus, type 2) Priority: Secondary Status: Chronic Qualifiers: Diabetes mellitus half-way insulin use: without embossing toolsetter use Diabetes mellitus complication status: without complication Qualified Code(s): E11.9 - Type 2 diabetes mellitus without complications Hospital course: Mr. Luo is a 58 year old male who came to emergency room stating he had 3-4 day history of discomfort in his ribs, mid low back, and epigastric area. He reports a cough productive of yellow sputum. He had 3 episodes of diarrhea but denies vomiting. He was evaluated in emergency room and was felt to have exacerbation of COPD with acute bronchitis and significant hyponatremia with sodium 116. He was [facility] floor for ongoing care needs. Initial orders were written by the emergency room physician. I saw him on October 29 and performed a history and physical. Chest CT was done to further evaluate. There was nonspecific groundglass opacity in the medial aspect of the right upper lobe possibly infectious or inflammatory. Recommendation was for repeat CT in 3-6 months. His PCP can order this. He was started on Rocephin and Zithromax. The WBC remained normal but there was gradual left shift that developed on differential. He will continue with oral antibiotic and probiotic for 5 additional days at discharge. He was given IV normal saline and sodium increased to 128 by day of discharge. His PCP can monitor this. Liver function testing showed AST 140, ALT 100, and alkaline phosphatase 105. Total bilirubin was slightly elevated at 1.5. I encouraged him to discontinue alcohol and tobacco use. His PCP can monitor labs. On October 31 he was improved and stable for discharge home. Room air oximetry on 6 minute walk showed saturation 92% or higher so supplemental oxygen will not be needed. He will follow with his PCP within 1 week. - Time Spent with Patient Total time spent providing and/or coordinating discharge services: - Discharge Medications Prescriptions: Cefuroxime PO [Ceftin] 500 mg PO Q12HR #10 tablet Azithromycin [Zithromax] 250 mg PO DAILY #5 tablet Lactobacillus [Culturelle] 1 each PO BID #10 cap.sprink Nicotine Patch [Nicoderm] 21 mg TD DAILY #28 patch.td24 Home Medications: metFORMIN [Glucophage] 1,000 mg PO BIDWM 03/04/17 [History] Loratadine [Allergy Relief] 10 mg PO DAILY PRN #0 03/14/17 [Rx] Albuterol Neb [AccuNeb] 2.5 mg IH QID PRN 10/28/18 [History] Alogliptin Benzoate [Alogliptin] 25 mg PO DAILY 10/29/18 [History] Gabapentin [Neurontin] 800 mg PO TID 10/29/18 [History] Insulin Glargine,Hum.rec.anlog [Basaglar Kwikpen U-100] 20 units SQ DAILY 10/29/18 [History] Meloxicam 15 mg PO DAILY 10/29/18 [History] Metoprolol [Lopressor] 100 mg PO BID 10/29/18 [History] Montelukast [Singulair] 10 mg PO DAILY 10/29/18 [History] Ventolin Hfa 90 mcg IH QID PRN 10/29/18 [History] Azithromycin [Zithromax] 250 mg PO DAILY #5 tablet 10/31/18 [Rx] Cefuroxime PO [Ceftin] 500 mg PO Q12HR #10 tablet 10/31/18 [Rx] Lactobacillus [Culturelle] 1 each PO BID #10 cap.sprink 10/31/18 [Rx] Nicotine Patch [Nicoderm] 21 mg TD DAILY #28 patch.td24 10/31/18 [Rx] Allergies/Adverse Reactions: Allergy/AdvReac Type Severity Reaction Status Date / Time codeine Allergy Itching Verified 03/12/17 13:54 Date of admission: 10/30/18 17:17 Primary care physician: Jane Gurrola [employer] DEVELOPER - Constitutional Vitals: Temp Pulse Resp BP Pulse Ox 97.4 F L 96 17 152/87 95 10/31/18 07:35 10/31/18 07:35 10/31/18 07:35 10/31/18 07:35 10/31/18 07:35 - Patient Status Disposition: Home, Self-Care Condition: Fair - Discharge Instructions Follow Up With: NONE,PCP [Primary Care Provider] - 1 week - Diet and Activity Activity: resume usual activities as tolerated Diet: advance to your usual diet
[2018-10-31 12:43] LABS: Folate 9.8 ng/mL (3.0-16.0)
--- NOTE | 2018-10-31 13:04 | Electrocardiograph Report ---
[place] [id number] Test Date: 2018-10-28 Pat Name: John Luo Department: EDP-16 Room: [facility] Gender: M Skilled Helper: : 1960 Requested By: Raleigh Nunez Order Number: [id number] Reading MD: Shannon Nielsen Measurements Intervals [place] Rate: 82 P: 81 GA: 199 QRS: 92 QRSD: 85 T: 48 QT: 360 QTc: 421 Interpretive Statements Sinus rhythm Borderline right axis deviation Low voltage, precordial leads Cannout rule out septal infarct, age indeterminate Electronically Signed On 10-31-2018 13:03:26 EST by Shannon Nielsen
== END 2018-10-31 13:09 | disposition home or self-care (01) | DRG 140 ==
LOC: INPPIK 15:58 → EMEROOPIK 15:58 → INPPIK 21:17
PROVIDERS: ADMIT Internal Medicine; ATTEND Internal Medicine